=== PATIENT | female | born 1985 | race Caucasian/White ===

== ENCOUNTER 2017-09-03 17:47 | Emergency (ER) | payer MEDICAID ==
[~2017-09-03] VITALS: Ht 157.5 cm; Wt 61.4 kg
[2017-09-03] MEDS ORDERED: HYDROcodone/APAP 5/325 TABLET ONE (18:18)
[2017-09-03 18:19] LABS: HEMOGLOBIN 16.5 g/dL (11.7-16.4); WHITE BLOOD COUNT 6.2 x10^3/uL (3.4-10)
[2017-09-03 18:27] LABS: PATH.CAST-FLAG NOT PRESENT; SPERM-FLAG NOT PRESENT; SRC-FLAG NOT PRESENT; XTAL-FLAG NOT PRESENT; YLC-FLAG NOT PRESENT
[2017-09-03] MEDS ORDERED: HYDROcodone/APAP 5/325 TABLET PO ONE (18:30)
[2017-09-03 19:21] LABS: BLOOD UREA NITROGEN 10 mg/dL (7-18)
[2017-09-03 19:50] VITALS: BP 110/73
== END 2017-09-03 19:52 | disposition home or self-care (01) ==
LOC: ED 18:46
DX: R10.2 Pelvic and perineal pain (principal); F17.200 Nicotine dependence, unspecified, uncomplicated
CPT/HCPCS: 36415; 76830; 80048; 81001; 82040; 84703; 85025; 87086; 99285

== ENCOUNTER 2017-09-09 09:50 | Emergency (ER) | payer MEDICAID ==
[~2017-09-09] VITALS: Ht 154.9 cm; Wt 61.3 kg
[2017-09-09 12:12] VITALS: BP 102/72
[2017-09-09 12:33] LABS: HCG UR LOT HCG7030192
[2017-09-09 12:38] LABS: HCG UR OBC PASS
== END 2017-09-09 13:13 | disposition home or self-care (01) ==
LOC: ED 10:29
DX: R10.2 Pelvic and perineal pain (principal)
CPT/HCPCS: 74020; 76830; 81003; 81025; 99285

== ENCOUNTER 2017-10-30 11:05 | Emergency (ER) | payer MEDICAID ==
[~2017-10-30] VITALS: Ht 154.9 cm; Wt 62.4 kg
[2017-10-30 11:07] VITALS: BP 146/109
[2017-10-30] MEDS ORDERED: LORazepam 1MG TABLET ONE ×2 (11:25)
[2017-10-30] MEDS ORDERED: LORazepam 1MG TABLET PO ONE (11:30)
[2017-10-30 11:45] LABS: BASOPHILS # (AUTO) 0.03 x10^3/uL (0-0.1); BASOPHILS % (AUTO) 0 % (0-1); EOSINOPHILS # (AUTO) 0.08 x10^3/uL (0-0.4); EOSINOPHILS % (AUTO) 1 % (1-7); LYMPHOCYTES # (AUTO) 1.74 x10^3/uL (1-3.4); LYMPHOCYTES % (AUTO) 20 % (22-44); MD NO; MEAN CORPUSCULAR HEMOGLOBIN 33.3 pg (27.0-34.8); MEAN CORPUSCULAR HGB CONC 34.6 g/dL (32.4-35.8); MEAN CORPUSCULAR VOLUME 96.3 fL (80-100); MEAN PLATELET VOLUME 7.7 fL (7.4-10.4); MONOCYTES # (AUTO) 0.47 x10^3/uL (0.2-0.8); MONOCYTES % (AUTO) 5 % (2-9); NEUTROPHILS % (AUTO) 74 % (42-75); PLATELET COUNT 216 x10^3/uL (130-400); RED BLOOD COUNT 4.79 x10^6/uL (3.82-5.3)
[2017-10-30 11:50] LABS: ALBUMIN 3.9 g/dL (3.4-5.0); ANION GAP 6 mmol/L (5-15); CALCIUM 8.7 mg/dL (8.5-10.1); CHLORIDE 109 mmol/L (98-107); CREATININE 0.71 mg/dL (0.55-1.02)
== END 2017-10-30 12:18 | disposition home or self-care (01) ==
LOC: ED 12:15
DX: F41.1 Generalized anxiety disorder (principal); F17.200 Nicotine dependence, unspecified, uncomplicated
CPT/HCPCS: 36415; 80048; 82040; 85025; 99284

== ENCOUNTER 2017-11-08 13:33 | Emergency (ER) | payer MEDICAID ==
[~2017-11-08] VITALS: Ht 154.9 cm; Wt 63.1 kg
[2017-11-08] MEDS ORDERED: LORazepam 1MG TABLET ONE (13:58)
[2017-11-08] MEDS ORDERED: LORazepam 1MG TABLET PO ONE (14:30)
[2017-11-08 14:53] VITALS: BP 127/80
== END 2017-11-08 14:58 | disposition home or self-care (01) ==
LOC: ED 14:04
DX: F41.1 Generalized anxiety disorder (principal); R06.4 Hyperventilation; F32.9 Major depressive disorder, single episode, unspecified; F17.210 Nicotine dependence, cigarettes, uncomplicated
CPT/HCPCS: 36415; 71046; 84484; 93005; 99285